=== PATIENT | male | born 1950 | race Caucasian/White ===

== ENCOUNTER 2016-12-28 10:03 | Emergency (ER) | payer OTHER, BC ==
[2016-12-28] MEDS ORDERED: FOLIC ACID 1 MG TAB PO ONE (10:09)
[2016-12-28] MEDS ORDERED: THIAMINE HCL 100 MG TAB PO ONE (10:09)
[2016-12-28 10:10] VITALS: RESP 18
[2016-12-28] MEDS ORDERED: LORazepam 2 MG/ML INJ ONE (10:11)
[2016-12-28] MEDS ORDERED: CHLORDIAZEPOXIDE 25MG PREPK#6 BTL TAKEHOME ONE (10:13)
--- NOTE | 2016-12-28 10:13 | EDPHY ---
H & P - Personal History Tetanus Vaccine Date: < 10 years - Medical/Surgical History Hx Asthma: No Hx Chronic Respiratory Disease: No Hx Diabetes: No Hx Cardiac Disease: No Hx Renal Disease: No Hx Cirrhosis: No Hx Alcoholism: Yes Hx HIV/AIDS: No Hx Splenectomy or Spleen Trauma: No Other PMH: ANEMIA, HIATAL HERNIA,SPINAL STENOSIS, DROP FOOT in past, ETOH, THROMBOCYTOPENIA, GERD/PANCREATITIS - Social History Smoking Status: Former smoker Time Seen by Provider: 12/28/16 10:03 HPI/ROS: CHIEF COMPLAINT: " I'm withdrawing" HISTORY OF PRESENT ILLNESS: 66-year-old self-described alcoholic called the ambulance because he ran out of alcohol. States he drinks a case of beer per day, last drank yesterday however because liquor stores are closed today and he was unable to get to the liquor store in time he ran out of alcohol has been experiencing withdrawal symptoms. He has been taking sips of Listerine. He is complaining of nausea, tremor. Denies visual or auditory hallucinations. Denies seizure. Denies abdominal pain. Denies back or flank pain. Denies melena or hematochezia or hematemesis. REVIEW OF SYSTEMS: A ten point review of systems was performed and is negative with the exception of the items mentioned in the HPI PAST MEDICAL & SURGICAL HISTORY: Alcoholism SOCIAL HISTORY:last drink of alcohol approximately midnight PHYSICAL EXAM (Prior to examination, patient consented to physical exam, hands were washed and my usual and customary physical exam procedures followed) 1) GENERAL: Well-developed, well-nourished, alert and oriented. Appears anxious , answering questions appropriate.tremulous 2) HEAD: Normocephalic, atraumatic 3) HEENT: Pupils equal, round, reactive to light bilaterally. Sclera anicteric. 4) NECK: Full range of motion, no meningeal signs. 5) LUNGS: Clear auscultation bilaterally 6) HEART: Regular rate and rhythm, no murmur, no heave, no gallop. 7) ABDOMEN: Obese, no focal tenderness, 8) MUSCULOSKELETAL: Moving all extremities, no focal areas of tenderness, no obvious trauma. No peripheral edema or discoloration. 9) BACK: no visual or palpable abnormality. 10) SKIN: No rash, no petechiae. 11) Psychiatric: Patient is oriented X 3, there is no agitation. Tremulous. DIFFERENTIAL DIAGNOSIS: in no particular order including but not limited to alcohol withdrawal, alcohol withdrawal seizure, delirium tremens (Flo Crawley) Constitutional: Initial Vital Signs Temperature (C) 37.3 C 12/28/16 10:08 Heart Rate 105 H 12/28/16 10:08 Respiratory Rate 18 12/28/16 10:08 Blood Pressure 172/107 H 12/28/16 10:08 O2 Sat (%) 91 L 12/28/16 10:08 O2 Delivery Mode Room Air Allergies/Adverse Reactions: No Known Allergies Allergy (Verified 02/11/16 23:46) Home Medications: Medication Instructions Recorded Pantoprazole Sodium [Protonix 40mg 40 mg PO DAILY #30 tab 03/03/15 (*)] traZODone [traZODONE 50MG (*)] 50 mg PO HS #0 tab 03/03/15 Ferrous Sulfate [Ferrous Sulf 325 325 mg PO DAILY@1200 10/12/15 MG (*)] Herbals/Supplements -Info Only 1 ea PO DAILY 10/12/15 Gemfibrozil [Lopid 600 MG (*)] 600 mg PO BIDAC 01/20/16 Venlafaxine HCl 75 mg PO BID 02/12/16 Calcium Carbonate [Tums 500MG (*)] 500 mg PO TID PRN #0 tab.chew 02/23/16 Gabapentin [Neurontin 100 MG (*)] 100 mg PO TID 06/13/16 Levothyroxine [Synthroid 50 mcg 50 mcg PO DAILY06 06/13/16 (*)] Medical Decision Making ED Course/Re-evaluation: The patient was evaluated and managed by the physician's therapy assistant. My cosignature indicates that I reviewed the chart and I agree with the findings and plan of care as documented. I am the secondary supervising physician. ( Cassie Villalobos) Patient was observed for a period of time with serial examinations in the emergency department. He received Ativan 2 mg IV. At Most recent exam at 10: 42 a.m. which time he is sleeping. Doubt delirium tremens. [facility]. He denies suicidal Or homicidal ideation on re-evaluation. (Flo Crawley) - Data Points Medications Given: Discontinued Medications Chlordiazepoxide (Librium 25 Mg Prepack#6) 1 btl TAKEHOME EDNOW ONE Stop: 12/28/16 10:14 Last Admin: 12/28/16 10:18 Dose: 1 btl Folic Acid (Folic Acid) 1 mg PO EDNOW ONE Stop: 12/28/16 10:10 Last Admin: 12/28/16 10:16 Dose: 1 mg Lorazepam (Ativan Injection) 2 mg IVP EDNOW ONE Stop: 12/28/16 10:18 Last Admin: 12/28/16 10:18 Dose: 2 mg Thiamine HCl (Vitamin B-1) 100 mg PO EDNOW ONE Stop: 12/28/16 10:10 Last Admin: 12/28/16 10:16 Dose: 100 mg Departure - Departure Disposition: Home, Routine, Self-Care Clinical Impression: Alcohol withdrawal Qualifiers: Complication of substance-induced condition: uncomplicated Qualified Code(s): F10.230 - Alcohol dependence with withdrawal, uncomplicated Condition: Good Instructions: Chlordiazepoxide (By mouth), Alcohol Withdrawal (ED) Additional Instructions: Please consider long-term sobriety. Call 911 if you develop seizure, hallucinations or any other symptoms that concern you Referrals: [facility] [Outside] - 1 day without fail
[2016-12-28] MEDS ORDERED: LORazepam 2 MG/ML INJ IVP ONE (10:17)
[2016-12-28 10:55] VITALS: BP 127/92; PULSE 104; TEMP 98.8; O2SAT 94
== END 2016-12-28 11:03 | disposition home or self-care (01) ==
LOC: EDUNIT#
DX: F10.230 Alcohol dependence with withdrawal, uncomplicated (principal); Z87.891 Personal history of nicotine dependence
CPT/HCPCS: 96374; 99284; J2060

== ENCOUNTER 2017-03-17 11:47 | Emergency (ER) | payer OTHER, BC ==
[2017-03-17 12:00] VITALS: RESP 16
[2017-03-17] MEDS ORDERED: NS 1,000 ML IV ONE (12:05)
--- NOTE | 2017-03-17 12:07 | CPEKG ---
Heart Rate: 77 RR Interval: 779 P-R Interval: 156 QRSD Interval: 104 QT Interval: 444 QTC Interval: 503 P Roberts: 33 QRS Roberts: 57 T Wave Roberts: 46 EKG Severity - ABNORMAL ECG - EKG Impression: SINUS RHYTHM EKG Impression: PROLONGED QT INTERVAL Electronically Signed By: Tu Garcia 17-Mar-2017 13:57:48
[2017-03-17 12:10] LABS: % IMMATURE GRANULYOCYTES 0.5 % (0.0-1.1); ABSOLUTE IMMATURE GRANULOCYTES 0.05 10^3/uL (0.00-0.10); ADD DIFF? NO; ADD MORPH? NO; ADD SCAN? NO; ATYPICAL LYMPHOCYTE FLAG 10 (0-99); FRAGMENT RBC FLAG 0 (0-99); HEMATOCRIT 38.3 % (40.0-51.0); HEMOGLOBIN 13.1 g/dL (13.7-17.5); LEFT SHIFT FLG 0 (0-99); LIPEMIA HEMOLYSIS FLAG 90 (0-99); MEAN CELL HEMOGLOBIN 30.5 pg (27.9-34.1); MEAN CELL HEMOGLOBIN CONCENTR. 34.2 g/dL (32.4-36.7); MEAN CELL VOLUME 89.1 fL (81.5-99.8); MEAN PLATELET VOLUME 9.1 fL (8.7-11.7); PLATELET CLUMPS FLAG 0 (0-99); PLATELET COUNT 204 10^3/uL (150-400); RED CELL DISTRIBUTION WIDTH 14.6 % (11.5-15.2)
[2017-03-17 12:29] LABS: ANION GAP 15 mEq/L (8-16); CALCIUM 9.4 mg/dL (8.5-10.4); CARBON DIOXIDE 26 mEq/l (22-31); CHLORIDE 102 mEq/L (97-110); GLOMERULAR FILTRATION RATE > 60; GLUCOSE 64 mg/dL (70-100); POTASSIUM 3.6 mEq/L (3.5-5.2); SODIUM 143 mEq/L (134-144)
[2017-03-17 13:17] LABS: CK-MB INTERPRETATION NEGATIVE (NEGATIVE)
[2017-03-17 13:19] LABS: CREATINE KINASE-MB FRACTION 8.35 ng/mL (0-3.19)
--- NOTE | 2017-03-17 14:31 | EDPHY ---
H & P Time Seen by Provider: 03/17/17 11:49 HPI/ROS: CHIEF COMPLAINT: Tired HISTORY OF PRESENT ILLNESS: Patient was up for the last 3 days and he took probably 33 Adderall tablets. He has a bottle for 60 prescribed for his ADD dated 03/13/2017 of which only 26 and half are left. Patient says he came in today because he just feeling really tired. 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 He said his right leg felt really cold earlier but now it is fine REVIEW OF SYSTEMS: Eye: no change in vision ENT: no sore throat Cardiac: no chest pain or syncope. Not dizzy or lightheaded Pulmonary: no cough or SOB Abdomen: no vomiting, diarrhea, abdominal pain Musculoskeletal: Previous left toe amputation Skin: no rash Neuro: no headache Constitutional: no fever : no urinary symptoms A comprehensive 10 point review of systems is otherwise negative aside from elements mentioned in the history of present illness. PAST MEDICAL HISTORY: Left 2nd and 3rd toe amputation after infection in [place] Social history: Former smoker, denies other drugs or alcohol. General Appearance: Alert and conversant, cooperative. Eyes: No scleral icterus. ENT, Mouth: Normal mucous membranes. Respiratory: Normal respiratory effort, breath sounds equal, lungs are clear to auscultation. Cardiovascular: Regular rate and rhythm. Dorsalis pedis pulse in both feet. Warm and well perfused. Normal motor and sensory in both feet. Not tachycardic. Gastrointestinal: Abdomen is soft and non tender. Neurological: Alert and oriented x3. Normally conversant. Face symmetric, normal movement and sensation in all extremities. Skin: Warm and dry, no rashes. No localized erythema or lymphangitis, no warmth to palpation, no blisters or eschar. Both legs examined and both feet. Musculoskeletal: Left 2nd and 3rd toe previous amputation, well healed. Compartments are soft in both legs, normal range of motion of both ankles and knees. No calf tenderness. Psychiatric: Not agitated. Denies SI or overdose. Not hallucinating. No evidence of psychosis. Speech is linear and fluent. Emergency Department course/MDM: Patient is not tachycardic. CPK is only slightly elevated at 500. I think his symptoms are explainable by the fact that he has been taking a lot of Adderall and has been awake for the last 3 days. 1435: Patient is alert, currently asymptomatic. Does not have evidence of vascular compromise or infection in his right leg. Smoking Status: Former smoker Constitutional: Initial Vital Signs Temperature (C) 36.8 C 03/17/17 11:57 Heart Rate 82 03/17/17 11:57 Respiratory Rate 16 03/17/17 11:57 Blood Pressure 124/78 H 03/17/17 11:57 O2 Sat (%) 100 03/17/17 11:57 O2 Delivery Mode Room Air Allergies/Adverse Reactions: No Known Allergies Allergy (Verified 02/11/16 23:46) Home Medications: Medication Instructions Recorded Pantoprazole Sodium [Protonix 40mg 40 mg PO DAILY #30 tab 03/03/15 (*)] traZODone [traZODONE 50MG (*)] 50 mg PO HS #0 tab 03/03/15 Ferrous Sulfate [Ferrous Sulf 325 325 mg PO DAILY@1200 10/12/15 MG (*)] Herbals/Supplements -Info Only 1 ea PO DAILY 10/12/15 Gemfibrozil [Lopid 600 MG (*)] 600 mg PO BIDAC 01/20/16 Venlafaxine HCl 75 mg PO BID 02/12/16 Calcium Carbonate [Tums 500MG (*)] 500 mg PO TID PRN #0 tab.chew 02/23/16 Gabapentin [Neurontin 100 MG (*)] 100 mg PO TID 06/13/16 Levothyroxine [Synthroid 50 mcg 50 mcg PO DAILY06 06/13/16 (*)] Medical Decision Making - Diagnostics EKG Interpretation: 12-lead EKG interpreted by me; official reading is in trace master. My interpretation is sinus rhythm rate 77 with QT 444. Differential Diagnosis: Differential considered including but not limited to sodium abnormality, glucose abnormality, fatigue from unintentional lateral overdose, primary psychiatric, anemia. - Data Points Laboratory Results: Laboratory Results 03/17/17 12:00 03/17/17 12:00 03/17/17 03/17/17 12:00 12:00 WBC 9.46 10^3/uL 10^3/uL (3.80-9.50) RBC 4.30 10^6/uL L 10^6/uL (4.40-6.38) Hgb 13.1 g/dL L g/dL (13.7-17.5) Hct 38.3 % L % (40.0-51.0) MCV 89.1 fL fL (81.5-99.8) MCH 30.5 pg pg (27.9-34.1) MCHC 34.2 g/dL g/dL (32.4-36.7) RDW 14.6 % % (11.5-15.2) Plt Count 204 10^3/uL 10^3/uL (150-400) MPV 9.1 fL fL (8.7-11.7) Neut % (Auto) 76.6 % H % (39.3-74.2) Lymph % (Auto) 12.1 % L % (15.0-45.0) [place] % (Auto) 9.2 % % (4.5-13.0) Eos % (Auto) 1.0 % % (0.6-7.6) Baso % (Auto) 0.6 % % (0.3-1.7) Nucleat RBC Rel Count 0.0 % % (0.0-0.2) Absolute Neuts (auto) 7.25 10^3/uL H 10^3/uL (1.70-6.50) Absolute Lymphs (auto) 1.14 10^3/uL 10^3/uL (1.00-3.00) Absolute Monos (auto) 0.87 10^3/uL H 10^3/uL (0.30-0.80) Absolute Eos (auto) 0.09 10^3/uL 10^3/uL (0.03-0.40) Absolute Basos (auto) 0.06 10^3/uL 10^3/uL (0.02-0.10) Absolute Nucleated RBC 0.00 10^3/uL 10^3/uL (0-0.01) Immature Gran % 0.5 % % (0.0-1.1) Immature Gran # 0.05 10^3/uL 10^3/uL (0.00-0.10) Sodium 143 mEq/L mEq/L (134-144) Potassium 3.6 mEq/L mEq/L (3.5-5.2) Chloride 102 mEq/L mEq/L (97-110) Carbon Dioxide 26 mEq/l mEq/l (22-31) Anion Gap 15 mEq/L mEq/L (8-16) BUN 25 mg/dL H mg/dL (7-23) Creatinine 1.0 mg/dL mg/dL (0.7-1.3) Estimated GFR > 60 Glucose 64 mg/dL L mg/dL (70-100) Calcium 9.4 mg/dL mg/dL (8.5-10.4) Creatine Kinase 508 IU/L H IU/L (0-224) CK-MB (CK-2) Fraction 8.35 ng/mL H ng/mL (0-3.19) CK-MB (CK-2) % 1.6 % % (0.0-4.0) Creatine Kinase Interp NEGATIVE (NEGATIVE) Medications Given: Discontinued Medications Sodium Chloride (Ns) 1,000 mls @ 0 mls/hr IV ONCE ONE PRN Reason: Wide Open Stop: 03/17/17 12:06 Last Admin: 03/17/17 12:07 Dose: 1,000 mls Departure - Departure Disposition: Home, Routine, Self-Care Clinical Impression: adderall ingestion Condition: Good Instructions: Amphetamine/Dextroamphetamine (By mouth) Additional Instructions: Take your medications only as prescribed. Referrals: Justino Norris MD [Primary Care Provider] - As per Instructions
[2017-03-17 14:59] VITALS: BP 118/74; PULSE 74; TEMP 97.9; O2SAT 94
== END 2017-03-17 14:58 | disposition home or self-care (01) ==
LOC: EDUNIT#
DX: R53.83 Other fatigue (principal); T43.624A Poisoning by amphetamines, undetermined, initial encounter; Z87.891 Personal history of nicotine dependence

== ENCOUNTER 2017-03-20 20:29 | Inpatient (IN) | payer OTHER, BC ==
--- NOTE | 2017-03-20 20:59 | EDPHY ---
H & P Time Seen by Provider: 03/20/17 20:42 HPI/ROS: CHIEF COMPLAINT: Left foot pain, edema HISTORY OF PRESENT ILLNESS: The patient is a 66-year-old male with previous MRI say presents to the emergency department with left foot pain and lower extremity swelling. Patient states that he has previously had MRI say in his foot which required amputation of his 2nd and 3rd toe. Patient states that he had pain and swelling over his left toe and saw a school office manager. The school office manager told him it was a blood blister and treated in the office. He now has increasing pain on his left foot. He also reports swelling and redness of his legs. No fevers or chills. No shortness of breath or chest pain. REVIEW OF SYSTEMS: My complete review of systems is negative except as mentioned in the HPI. Past Medical/Surgical History: Includes MRSA, anemia, hiatal hernia, spinal stenosis, alcohol abuse, thrombocytopenia, GERD, pancreatitis Past surgical history: Toe amputation Social History: Patient denies alcohol use Smoking Status: Former smoker Physical Exam: Vitals noted GENERAL: No acute distress, alert. HEENT: Eyes normal to inspection, normal pharynx, no signs of dehydration. NECK: No thyromegaly, no lymphadenopathy, supple. RESPIRATORY: Clear to auscultation bilaterally, no rales, rhonchi or wheezing. CVS: Regular rate and rhythm, no rubs, murmurs, or gallops. ABDOMEN: Soft, nontender, nondistended, no organomegaly. BACK: Normal to inspection, no CVA tenderness.See SKIN: Normal color, patient has discoloration over his anterior abdomen. There are no petechiae or hives. Warm, dry. No pallor. See lower extremity exam. EXTREMITIES: Mild bilateral pedal edema. Patient has bilateral lower extremity erythema. Left greater than right. There streaking up the left medial proximal leg. Lower extremities feel mildly warm. Patient's left lower extremity has a discoloration at the tip of great toe. The patient states this is secondary from a school office manager shaving off a blood blister. Patient has amputation of the 2nd 3rd toe on the left. NEURO/PSYCH: Alert and oriented x3, slightly pressured speech, normal motor sensory exam. Constitutional: Initial Vital Signs Temperature (C) 36.8 C 03/20/17 20:33 Heart Rate 89 03/20/17 20:33 Respiratory Rate 20 03/20/17 20:33 Blood Pressure 136/86 H 03/20/17 20:33 O2 Sat (%) 95 03/20/17 20:33 O2 Delivery Mode Room Air Allergies/Adverse Reactions: No Known Allergies Allergy (Verified 03/20/17 20:36) Home Medications: Medication Instructions Recorded Pantoprazole Sodium [Protonix 40mg 40 mg PO DAILY #30 tab 03/03/15 (*)] traZODone [traZODONE 50MG (*)] 50 mg PO HS #0 tab 03/03/15 Ferrous Sulfate [Ferrous Sulf 325 325 mg PO DAILY@1200 10/12/15 MG (*)] Herbals/Supplements -Info Only 1 ea PO DAILY 10/12/15 Gemfibrozil [Lopid 600 MG (*)] 600 mg PO BIDAC 01/20/16 Gabapentin [Neurontin 100 MG (*)] 100 mg PO TID 06/13/16 Disulfiram [Antabuse 250 MG (*)] 250 mg PO HS 03/20/17 Levothyroxine [Synthroid 75 mcg 75 mcg PO DAILY@0600 03/20/17 (*)] Venlafaxine Xr [Effexor Xr] 150 mg PO DAILY 03/20/17 Medical Decision Making ED Course/Re-evaluation: In the emergency department discussed possible etiologies with the patient. I answered all his questions. IV was placed. Laboratory studies were obtained. Patient had blood cultures ordered. Lactate was ordered. The patient was given Rocephin 1 g IV and vancomycin 1 g IV for possible MRI say infection/ cellulitis. Patient's chemistry panel was unremarkable. White count was normal. His lactate was normal. I discussed the results with the patient answered all his questions. I discussed the case with the hospitalist, Dr. Nobles, who accepted the patient. Differential Diagnosis: My differential includes but is not limited to cellulitis, MRI say, edema, allergic reaction bacteremia, sepsis - Data Points Laboratory Results: Laboratory Results 03/20/17 21:45 03/20/17 21:45 03/20/17 03/20/17 03/20/17 21:46 21:45 21:45 WBC RBC Hgb Hct MCV MCH MCHC RDW Plt Count MPV Neut % (Auto) Lymph % (Auto) [place] % (Auto) Eos % (Auto) Baso % (Auto) Nucleat RBC Rel Count Absolute Neuts (auto) Absolute Lymphs (auto) Absolute Monos (auto) Absolute Eos (auto) Absolute Basos (auto) Absolute Nucleated RBC Immature Gran % Immature Gran # PT 13.9 SEC SEC (12.0-15.0) INR 1.08 (0.83-1.16) APTT 36.1 SEC SEC (23.0-38.0) VBG Lactic Acid 0.8 mmol/L mmol/L (0.7-2.1) Sodium 140 mEq/L mEq/L (134-144) Potassium 3.4 mEq/L L mEq/L (3.5-5.2) Chloride 104 mEq/L mEq/L (97-110) Carbon Dioxide 25 mEq/l mEq/l (22-31) Anion Gap 11 mEq/L mEq/L (8-16) BUN 13 mg/dL mg/dL (7-23) Creatinine 0.7 mg/dL mg/dL (0.7-1.3) Estimated GFR > 60 Glucose 73 mg/dL mg/dL (70-100) Calcium 9.1 mg/dL mg/dL (8.5-10.4) Total Bilirubin 0.6 mg/dL mg/dL (0.1-1.4) 03/20/17 21:45 WBC 8.49 10^3/uL 10^3/uL (3.80-9.50) RBC 4.05 10^6/uL L 10^6/uL (4.40-6.38) Hgb 12.3 g/dL L g/dL (13.7-17.5) Hct 35.4 % L % (40.0-51.0) MCV 87.4 fL fL (81.5-99.8) MCH 30.4 pg pg (27.9-34.1) MCHC 34.7 g/dL g/dL (32.4-36.7) RDW 14.1 % % (11.5-15.2) Plt Count 230 10^3/uL 10^3/uL (150-400) MPV 8.9 fL fL (8.7-11.7) Neut % (Auto) 68.7 % % (39.3-74.2) Lymph % (Auto) 16.7 % % (15.0-45.0) [place] % (Auto) 11.4 % % (4.5-13.0) Eos % (Auto) 1.8 % % (0.6-7.6) Baso % (Auto) 0.8 % % (0.3-1.7) Nucleat RBC Rel Count 0.0 % % (0.0-0.2) Absolute Neuts (auto) 5.83 10^3/uL 10^3/uL (1.70-6.50) Absolute Lymphs (auto) 1.42 10^3/uL 10^3/uL (1.00-3.00) Absolute Monos (auto) 0.97 10^3/uL H 10^3/uL (0.30-0.80) Absolute Eos (auto) 0.15 10^3/uL 10^3/uL (0.03-0.40) Absolute Basos (auto) 0.07 10^3/uL 10^3/uL (0.02-0.10) Absolute Nucleated RBC 0.00 10^3/uL 10^3/uL (0-0.01) Immature Gran % 0.6 % % (0.0-1.1) Immature Gran # 0.05 10^3/uL 10^3/uL (0.00-0.10) PT INR APTT VBG Lactic Acid Sodium Potassium Chloride Carbon Dioxide Anion Gap BUN Creatinine Estimated GFR Glucose Calcium Total Bilirubin Medications Given: Discontinued Medications Ceftriaxone Sodium/Dextrose (Rocephin 1 Gm (Premix)) 50 mls @ 100 mls/hr IV EDNOW ONE PRN Reason: Protocol Stop: 03/20/17 22:06 Last Admin: 03/20/17 22:01 Dose: 50 mls Departure - Departure Disposition: [facility] Inpatient Acute Clinical Impression: Cellulitis Qualifiers: Site of cellulitis: extremity Site of cellulitis of extremity: lower extremity Laterality: unspecified laterality Qualified Code(s): L03.119 - Cellulitis of unspecified part of limb Condition: Good Referrals: Justino Norris MD [Primary Care Provider] - As per Instructions
[2017-03-20] MEDS ORDERED: VANCOMYCIN HCL/NORMAL SALINE 250 ML IV ONE (21:37)
[2017-03-20 21:58] LABS: % IMMATURE GRANULYOCYTES 0.6 % (0.0-1.1); ABSOLUTE IMMATURE GRANULOCYTES 0.05 10^3/uL (0.00-0.10); ADD DIFF? NO; ADD MORPH? NO; ADD SCAN? NO; ATYPICAL LYMPHOCYTE FLAG 10 (0-99); FRAGMENT RBC FLAG 0 (0-99); HEMATOCRIT 35.4 % (40.0-51.0); HEMOGLOBIN 12.3 g/dL (13.7-17.5); LEFT SHIFT FLG 0 (0-99); LIPEMIA HEMOLYSIS FLAG 90 (0-99); MEAN CELL HEMOGLOBIN 30.4 pg (27.9-34.1); MEAN CELL HEMOGLOBIN CONCENTR. 34.7 g/dL (32.4-36.7); MEAN CELL VOLUME 87.4 fL (81.5-99.8); MEAN PLATELET VOLUME 8.9 fL (8.7-11.7); PLATELET CLUMPS FLAG 0 (0-99); PLATELET COUNT 230 10^3/uL (150-400); RED BLOOD CELL COUNT 4.05 10^6/uL (4.40-6.38); RED CELL DISTRIBUTION WIDTH 14.1 % (11.5-15.2)
[2017-03-20 22:07] LABS: INR 1.08 (0.83-1.16); PROTIME(PATIENT) 13.9 SEC (12.0-15.0)
[2017-03-20 22:08] LABS: APTT 36.1 SEC (23.0-38.0)
[2017-03-20 22:16] LABS: ANION GAP 11 mEq/L (8-16); BILIRUBIN,TOTAL 0.6 mg/dL (0.1-1.4); CALCIUM 9.1 mg/dL (8.5-10.4); CARBON DIOXIDE 25 mEq/l (22-31); CHLORIDE 104 mEq/L (97-110); CREATININE 0.7 mg/dL (0.7-1.3); GLOMERULAR FILTRATION RATE > 60; GLUCOSE 73 mg/dL (70-100); POTASSIUM 3.4 mEq/L (3.5-5.2); SODIUM 140 mEq/L (134-144)
[2017-03-21] MEDS ORDERED: ACETAMINOPHEN 325 MG TAB PO PRN (00:06)
[2017-03-21] MEDS ORDERED: ONDANSETRON DISINTEGRATING 4 MG TAB PO PRN (00:06)
[2017-03-21] MEDS ORDERED: oxyCODONE IR 5 MG TAB PO PRN (00:06)
[2017-03-21] MEDS ORDERED: ONDANSETRON 4 MG/2 ML VIAL IVP PRN (00:06)
--- NOTE | 2017-03-21 02:56 | PDGENHP ---
History and Physical - Chief Complaint Toe pain - History of Present Illness 66 yo M w/ hx of hypothyroidism and depression presenting with concerns about his L great toe. Patient is a very poor historian and it is quite difficult to ascertain what his exact complaint is. As far as I can tell, he visited a cnc grinder last week who treated a blood blister on his L great toe. Then, today , the patient noticed some increased pain and perhaps a change in appearance. He has erythema on his bilateral lower legs, which he says started after an Adderall overdose a few days ago. He denies fever or chills. The patient himself is not concerned about the erythema. ED wants to admit for cellulitis and IV abx. History Information - Allergies/Home Medication List Allergies/Adverse Reactions: No Known Allergies Allergy (Verified 03/20/17 20:36) Home Medications: Ferrous Sulfate [Ferrous Sulf 325 MG (*)] 325 mg PO DAILY@1200 10/12/15 [Last Taken 03/17/17] Herbals/Supplements -Info Only 1 ea PO DAILY 10/12/15 [Last Taken 03/17/17] Gemfibrozil [Lopid 600 MG (*)] 600 mg PO BIDAC 01/20/16 [Last Taken 03/17/17] Gabapentin [Neurontin 100 MG (*)] 100 mg PO TID 06/13/16 [Last Taken 03/17/17] Dextroamphetamine/Amphetamine [Adderall 30 mg Tablet] 30 mg PO BID@0800,1400 12/01 [Last Taken 03/17/17] Disulfiram [Antabuse 250 MG (*)] 250 mg PO HS 03/20/17 [Last Taken 03/17/17] Levothyroxine [Synthroid 75 mcg (*)] 75 mcg PO DAILY@0600 03/20/17 [Last Taken 03/17/17] Venlafaxine Xr [Effexor Xr] 150 mg PO DAILY 03/20/17 [Last Taken 03/17/17] I have personally reviewed and updated: medical history - Past Medical History Additional medical history: Depression, hypothyroid, anemia - Surgical History Reports: amputation Additional surgical history: L 2nd and 3rd toes - Family History Additional family history: Patient reports family hx of Chron's disease - Social History Smoking Status: Former smoker Alcohol Use: Sober Drug Use: None Review of Systems ROS: 10pt was reviewed & negative except for what was stated in HPI & below Physical Exam Temp Pulse Resp BP Pulse Ox 36.3 C 89 16 140/83 H 95 03/21/17 00:00 03/21/17 00:00 03/21/17 00:00 03/21/17 00:00 03/21/17 00:00 Constitutional: no apparent distress, not in pain Eyes: PERRL, EOMI Ears, Nose, Mouth, Throat: moist mucous membranes, no oral mucosal ulcers Cardiovascular: regular rate and rhythym, no murmur, rub, or gallop Respiratory: no respiratory distress, clear to auscultation Gastrointestinal: normoactive bowel sounds, soft, non-tender abdomen Skin: erythema (b/l shins, L leg with some subtle extension superiorly on medial aspect of leg) Musculoskeletal: other (S/p L 2nd/3rd too amputation; L great toe with onychomycosis, mild area of erythema superiorly, no puss or warmth) Neurologic: AAOx3, CN II-XII Intact Psychiatric: not anxious, other (Odd affect) Lab Data & Imaging Review 03/20/17 21:45 03/20/17 21:45 WBC 8.49 10^3/uL (3.80-9.50) 03/20/17 21:45 RBC 4.05 10^6/uL (4.40-6.38) L 03/20/17 21:45 Hgb 12.3 g/dL (13.7-17.5) L 03/20/17 21:45 Hct 35.4 % (40.0-51.0) L 03/20/17 21:45 MCV 87.4 fL (81.5-99.8) 03/20/17 21:45 MCH 30.4 pg (27.9-34.1) 03/20/17 21:45 MCHC 34.7 g/dL (32.4-36.7) 03/20/17 21:45 RDW 14.1 % (11.5-15.2) 03/20/17 21:45 Plt Count 230 10^3/uL (150-400) 03/20/17 21:45 MPV 8.9 fL (8.7-11.7) 03/20/17 21:45 Neut % (Auto) 68.7 % (39.3-74.2) 03/20/17 21:45 Lymph % (Auto) 16.7 % (15.0-45.0) 03/20/17 21:45 [place] % (Auto) 11.4 % (4.5-13.0) 03/20/17 21:45 Eos % (Auto) 1.8 % (0.6-7.6) 03/20/17 21:45 Baso % (Auto) 0.8 % (0.3-1.7) 03/20/17 21:45 Nucleat RBC Rel Count 0.0 % (0.0-0.2) 03/20/17 21:45 Absolute Neuts (auto) 5.83 10^3/uL (1.70-6.50) 03/20/17 21:45 Absolute Lymphs (auto) 1.42 10^3/uL (1.00-3.00) 03/20/17 21:45 Absolute Monos (auto) 0.97 10^3/uL (0.30-0.80) H 03/20/17 21:45 Absolute Eos (auto) 0.15 10^3/uL (0.03-0.40) 03/20/17 21:45 Absolute Basos (auto) 0.07 10^3/uL (0.02-0.10) 03/20/17 21:45 Absolute Nucleated RBC 0.00 10^3/uL (0-0.01) 03/20/17 21:45 Immature Gran % 0.6 % (0.0-1.1) 03/20/17 21:45 Immature Gran # 0.05 10^3/uL (0.00-0.10) 03/20/17 21:45 PT 13.9 SEC (12.0-15.0) 03/20/17 21:45 INR 1.08 (0.83-1.16) 03/20/17 21:45 APTT 36.1 SEC (23.0-38.0) 03/20/17 21:45 VBG Lactic Acid 0.8 mmol/L (0.7-2.1) 03/20/17 21:46 Sodium 140 mEq/L (134-144) 03/20/17 21:45 Potassium 3.4 mEq/L (3.5-5.2) L 03/20/17 21:45 Chloride 104 mEq/L (97-110) 03/20/17 21:45 Carbon Dioxide 25 mEq/l (22-31) 03/20/17 21:45 Anion Gap 11 mEq/L (8-16) 03/20/17 21:45 BUN 13 mg/dL (7-23) 03/20/17 21:45 Creatinine 0.7 mg/dL (0.7-1.3) 03/20/17 21:45 Estimated GFR > 60 03/20/17 21:45 Glucose 73 mg/dL (70-100) 03/20/17 21:45 Calcium 9.1 mg/dL (8.5-10.4) 03/20/17 21:45 Total Bilirubin 0.6 mg/dL (0.1-1.4) 03/20/17 21:45 Assessment & Plan Assessment: 66 yo M w/ hx of hypothyroid, depression, and anemia presenting w/ possible LLE cellulitis. Plan: 1. Possible cellulitis - Patient is afebrile with WBC of 8 and no infectious symptoms. He does have some erythema on the superior aspect of L great toe, b/l shins, and subtle extensions superiorly on medial aspect of L thigh. Difficult to say if this is cellulitis. I doubt this represents b/l LE cellulitis, if anything extension of erythema up L leg may be slightly concerning. - Marked area of erythema with marker on admission - Blood cultures ordered - Will treat with Vancomycin for now and monitor for retreat of erythema, suspect will be able to transition to PO or stop abx altogether rather quickly - Will not obtain toe imaging at this time noting low suspicion for OM 2. Hypothyroid - Continue LTX 3. Depression - On Venlafaxine as an outpatient. Patient has presented multiple times with Adderall overdoses, unclear if he is still being prescribed this. 4. JOURDAN - On oral Fe as outpatient Diet - Regular Ppx - LMWH Code - Full Dispo - Admit to observation
[2017-03-21 05:26] LABS: % IMMATURE GRANULYOCYTES 0.5 % (0.0-1.1); ABSOLUTE IMMATURE GRANULOCYTES 0.03 10^3/uL (0.00-0.10); ADD DIFF? NO; ADD MORPH? NO; ADD SCAN? NO; ATYPICAL LYMPHOCYTE FLAG 10 (0-99); FRAGMENT RBC FLAG 0 (0-99); HEMATOCRIT 32.4 % (40.0-51.0); HEMOGLOBIN 11.5 g/dL (13.7-17.5); LEFT SHIFT FLG 0 (0-99); LIPEMIA HEMOLYSIS FLAG 90 (0-99); MEAN CELL HEMOGLOBIN 30.8 pg (27.9-34.1); MEAN CELL HEMOGLOBIN CONCENTR. 35.5 g/dL (32.4-36.7); MEAN CELL VOLUME 86.9 fL (81.5-99.8); MEAN PLATELET VOLUME 8.9 fL (8.7-11.7); PLATELET CLUMPS FLAG 0 (0-99); PLATELET COUNT 227 10^3/uL (150-400); RED BLOOD CELL COUNT 3.73 10^6/uL (4.40-6.38); RED CELL DISTRIBUTION WIDTH 14.2 % (11.5-15.2)
[2017-03-21 05:45] LABS: ANION GAP 8 mEq/L (8-16); CALCIUM 8.6 mg/dL (8.5-10.4); CARBON DIOXIDE 21 mEq/l (22-31); CHLORIDE 108 mEq/L (97-110); CREATININE 0.7 mg/dL (0.7-1.3); GLOMERULAR FILTRATION RATE > 60; GLUCOSE 107 mg/dL (70-100); POTASSIUM 3.4 mEq/L (3.5-5.2); SODIUM 137 mEq/L (134-144)
[2017-03-21] MEDS ORDERED: POTASSIUM CL 20 MEQ TAB PO ONE (05:59)
[2017-03-21] MEDS ORDERED: NON-FORMULARY NEW DRUG (Dextroamphetamine/Amphetamine [Adderall 30 Mg Tablet] 30 MG) PO SCH (08:00)
[2017-03-21] MEDS ORDERED: Herbals/Supplements -Info Only PO SCH (09:00)
[2017-03-21] MEDS: VENLAFAXINE XR 150 MG CAP PO SCH (09:15)
[2017-03-21] MEDS: ENOXAPARIN 40 MG/0.4 ML SYR SC SCH (09:15)
[2017-03-21] MEDS: GABAPENTIN 100 MG CAP PO SCH ×3 (09:15→22:40)
[2017-03-21] MEDS: PANTOPRAZOLE SODIUM 40 MG TAB PO SCH (09:15)
[2017-03-21] MEDS: ADDERALL 10 MG TAB PO SCH ×2 (09:38→15:32)
[2017-03-21] MEDS ORDERED: VANCOMYCIN 1.5 GM in D5W 250 ML IV SCH (11:00)
[2017-03-21] MEDS ORDERED: FAMOTIDINE 20 MG/NACL 50 ML IV ONE (12:07)
[2017-03-21] MEDS ORDERED: DIPHENHYDRAMINE CREAM TP PRN (12:07)
[2017-03-21] MEDS: FERROUS SULFATE 325 MG TAB PO SCH (13:10)
--- NOTE | 2017-03-21 13:52 | HOSPPROG ---
Hospitalist Progress Note Assessment/Plan: Patient is a 66 y/o male who presented to the ER with pain to his great Left toe. He saw a medical illustrator last week for evaluation. Had a blister removed. Reviewed his care with Dr Mane Lopez. *Left great toe edema with possible cellulitis blood cx pending was on vanco/will be changed to Cefazolin to get MRI today *recent Adderall overdose is still on this medication and requesting it received a dose today, but is very anxious after *hypothyroidism Synthroid *depression stable/Effexor *alcohol use: chronically on Antabuse *iron deficiency anemia *hypokalemia added electrolyte protocol *dvt prophylaxis: LMWH *Plan: patient will require another midnight stay to evaluate the above Subjective: Jamel is c/o pain at the left big toe area. Objective: Vital Signs Temp Pulse Resp BP Pulse Ox 36.9 C 75 24 H 134/84 H 93 03/21/17 07:24 03/21/17 07:24 03/21/17 07:24 03/21/17 07:24 03/21/17 07:24 Laboratory Results 03/21/17 05:12 03/21/17 05:12 03/20/17 03/21/17 03/22/17 05:59 05:59 05:59 Intake Total 700 972 Balance 700 972 PT 13.9 SEC (12.0-15.0) 03/20/17 21:45 INR 1.08 (0.83-1.16) 03/20/17 21:45 - Physical Exam Constitutional: chronically ill appearing, No not in pain Eyes: PERRL Ears, Nose, Mouth, Throat: hearing normal Cardiovascular: regular rate and rhythym Respiratory: no respiratory distress Gastrointestinal: normoactive bowel sounds Skin: warm, other (left big toe reddened some dried blood at the tip of it/ has some warmth and redness in the ankle area and extends to the huffman area/ no significant swellling) Neurologic: AAOx3 Psychiatric: interacting appropriately, anxious ICD10 Worksheet Patient Problems: Problems Problem Status Onset Cellulitis Acute Adrenal insufficiency Acute Epigastric abdominal pain Acute Nausea & vomiting Acute Sympathomimetic adverse reaction Acute
[2017-03-21] MEDS ORDERED: ADDERALL 10 MG TAB PO SCH (14:00)
--- NOTE | 2017-03-21 14:43 | GCON ---
[f rep st] CONSULTATION INFECTIOUS DISEASE CONSULTATION DATE OF CONSULTATION: 03/21/2017 REFERRING PHYSICIAN: Francis Johnson MD REASON FOR CONSULTATION: Left great toe erythema with wound and possible lower extremity cellulitis . CHIEF COMPLAINT: Red great toe. HISTORY OF PRESENT ILLNESS: This is a 66-year-old male with a past medical history significant for hypothyroidism and depression who came in yesterday after noticing that his left great toe and his l egs were red and that he had some scabbing over his left great toe wound. Apparently, a week ago he went to a shoe repair cobbler, whom the name he cannot recall, when he noticed this black area on his great toe. He was told it was a blood blister and, apparently, it was removed. He had a bandage over it and had not been monitoring it until yesterday when he noticed that there was this black scab over i t and then redness of his great toe. He said that he has had redness of his great toe for the last 4-5 days, although he is a poor historian and cannot give accurate details regarding his left great toe wound or the redness of his foot or legs. He denies any fevers. He said he might have had chil ls. He does have some pain involving his foot just below the great toe area. He states he has sens ation of his feet, particularly left greater than the right. He cannot recall any specific recent t rauma to the left great toe which induced a blood blister. He is not quite sure how he developed it . Patient was placed on vancomycin yesterday, and blood cultures were obtained and are pending, and Infectious Disease is now consulted for further assessment and opinion regarding above. REVIEW OF SYSTEMS: No fevers,intermittent chills. HEAD: No headaches. EYES: No change in vision . ENT: No sore throat, difficulty swallowing, ear pain or ear drainage. CARDIOVASCULAR: Denies a ny chest pain or rapid heartbeat. RESPIRATORY: Denies any shortness of breath or cough. No sputum production. ABDOMEN: No nausea, vomiting, abdominal pain, diarrhea. : No dysuria or hematuria . LOWER EXTREMITIES: He states he has left lower leg, foot swelling. He cannot tell me the durati on of it. MUSCULOSKELETAL: Denies any other joint pains. SKIN: No other change except for the ab ove. Rest of 10-point review of systems essentially negative except for above. PAST MEDICAL HISTORY: Significant for hypothyroidism, depression, and anemia. 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 SOCIAL HISTORY: He is a former smoker. Denies any alcohol. Lives alone. FAMILY HISTORY: Significant for Crohn's. MEDICATIONS: As per MAR. ALLERGIES: No known drug allergies. PHYSICAL EXAMINATION: VITAL SIGNS: Temperature current 36.9, pulse is 75, blood pressure 134/84. Saturations are 93% on room air. Respiratory rate is 24. GENERAL: Patient is sitting on the couch in no acute respiratory distress. Awake, alert, and oriented x3. HEENT: Head is normocephalic, a traumatic. Eyes are reactive bilaterally. No conjunctival injection. No petechiae. Oropharynx is clear. There is no posterior erythema or thrush. CARDIOVASCULAR: S1, S2. Regular rate, rhythm. No murmurs appreciated. RESPIRATORY: Clear to auscultation bilaterally. No rhonchi or rales appr eciated. ABDOMEN: Positive bowel sounds in all 4 quadrants. Soft, nontender, nondistended. No ob vious organomegaly appreciated. EXTREMITIES: Left lower extremity leg and foot swelling. SKIN: M ild erythema involving the left leg. Skin is warm to touch. It appears he might have some mild chr onic venous stasis changes bilaterally, left great toe with erythema which is also warm to touch. N o pain on flexion or extension of the great toe, although there is pain on palpation around the 1st metatarsal head. There is breakdown of the skin at the tip of the great toe. It appears to be supe rficial in nature and some nail changes noted. No known gangrene-like changes. LABORATORY DATA: White blood cell count of 6.4, hemoglobin 11.5, platelets are 227. Neutrophil cou nt is 62%. INR is 1.0. Venous lactic acid 0.8. Sodium 137, potassium 3.4, chloride is 108, bicarb is 21, BUN is 10, creatinine 0.7. Blood cultures x2 sets are pending. I reviewed previous microbi ologic data. It appears that in 2015, he had a toe tissue culture noted with group A strep and MSSA. ASSESSMENT: Left great toe erythema with what appears to be a superficial wound at the tip and poss ible left lower extremity cellulitis versus venous stasis changes. PLAN: At this point in time, will change vancomycin to Ancef given his previous microbiologic data. Await blood cultures for further microbiologic data. Recommend the patient get an MRI of the left foot to further evaluate the great toe as well as the metatarsal region, especially given pain and to evaluate for possible underlying osteomyelitis. Will add CRP to current labs. Recommend elevati ng the leg to help with reducing edema. Would recommend wound care as well to help. Care coordinat ed with the nursing staff. I thank you very much for providing us the opportunity to care for your patient in consultation. /[id number]/MODL
[2017-03-21] MEDS: ceFAZolin 2 GM/DEXTROSE 100 ML IV SCH ×2 (15:09→22:36)
[2017-03-21] MEDS ORDERED: LORazepam 1 MG TAB PO PRN (15:42)
[2017-03-21] MEDS ORDERED: GADOBUTROL 10 ML VIAL IVP ONE (15:57)
[2017-03-21] MEDS: GEMFIBROZIL 600 MG TAB PO SCH (17:31)
[2017-03-21] MEDS: DISULFIRAM 250 MG TAB PO SCH (22:40)
[2017-03-21] MEDS: traZODone 50 MG TAB PO SCH (22:40)
[2017-03-22] MEDS: LEVOTHYROXINE 75 MCG TAB PO SCH (05:48)
[2017-03-22] MEDS: ceFAZolin 2 GM/DEXTROSE 100 ML IV SCH ×3 (05:49→21:55)
[2017-03-22] MEDS: VENLAFAXINE XR 150 MG CAP PO SCH (09:52)
[2017-03-22] MEDS: PANTOPRAZOLE SODIUM 40 MG TAB PO SCH (09:52)
[2017-03-22] MEDS: GABAPENTIN 100 MG CAP PO SCH ×3 (09:52→21:55)
[2017-03-22] MEDS: GEMFIBROZIL 600 MG TAB PO SCH ×2 (09:52→18:05)
[2017-03-22] MEDS: ENOXAPARIN 40 MG/0.4 ML SYR SC SCH (09:52)
--- NOTE | 2017-03-22 10:34 | WOCRNPDOC ---
[facility] Advanced Assessment Note - Skin Integrity Problem, Advanced Assess Left First Toe Dressing Type: Adaptic Touch, Jayna Dressing Description: Intact, Shadowed Exudate Amount: Scant Exudate Color: Reddish/Yellow Exudate Characteristic(s): Sanguinopurulent Integumentary Issue Intervention: Dressing Changed, Silver Gel Applied, Conservative Sharp Bedside Debridement (removal of non-viable callous flap), Mechanical Debridement Erin Wound Tissue: Erythema, Swollen Erin Wound Swelling: Moderate Wound Bed Color: Red, Yellow Wound Bed Constitution: Smooth Tissue (non-granulating), Adhered Slough Site Measurement - Head-to-Toe Length X Width X Depth (cm): Proximal (plantar aspect): 1.4cmx2.2cmx01.cm. Distal (tip of toe): 0.5cmx1.2cmx0.1cm Pulse Location & Description: +2 DP Extremity Temperature: Warm Peripheral Edema Location & Description: +1, pitting, LLE Skin Integrity Problem Comment: Initially this appeared to be one, continuous wound covering the distal aspect of the L great toe. During assessment and cleansing of area, I removed a flap of non-viable, calloused tissue. Underneath , there appear to be two discrete wounds, one at the very tip of the L great toe (distal) and the other on the plantar aspect of the toe (proximal). Distal wound comprised of soft, non-fluctuant tissue smooth tissue, no apparent necrosis. The proximal wound on the plantar aspect is 20% non-granulating, bloody tissue and the remaining wound bed is adhered slough. In between the two wounds is pink new epithelium. There is erythema, warmth, and swelling erin- wound, and this extends up through patient's LLE. Dressing of Hydrofera Blue Ready apply over both wounds, and toe and forefront of foot wrapped w/ Jayna. This patient is under the care of a communicable disease specialist outpatient for ongoing callous removal and foot care. Given his reported history of self-treatment (which includes callous removal w/ scissors) and the previous amputation of both the 2nd and 3rd toes on this extremity, I think it would be prudent for him to have home care for dressing changes and to continue treatment w/ his communicable disease specialist. Wound care will round on patient again on Sunday 03/25. Report given to clinical operations consultant Aaron. Right Second Toe Dressing Type: Band Aid Dressing Description: Intact Exudate Amount: None Exudate Characteristic(s): None Integumentary Issue Intervention: Visualized Under Dressing, Silver Gel Applied Erin Wound Tissue: Intact, Calloused Erin Wound Swelling: None Wound Bed Color: Brown, Red Wound Bed Constitution: Scab Site Odor: None Site Measurement - Head-to-Toe Length X Width X Depth (cm): 0.9mcx3okf0.1cm Skin Integrity Problem Comment: Linear abrasion noted to distal R 2nd toe, presently scabbed w/ no exudate or necrosis noted. Erin-wound tissue is mildy calloused at distal aspect, intact throughout remaining digit. Per patient report, this injury was caused when he attempted to remove a callous w/ scissors. I spoke w/ him at length about how and why this needs to be performed by a communicable disease specialist in the future. He verbalized understanding, and said he will not attempt to do this again given the poor outcome associated w/ his other toes on the L foot. Re-covered site w/ Band-aid after applying small amount of Silvasorb gel. Wound care does not need to follow this particular wound ongoing.
[2017-03-22] MEDS: FERROUS SULFATE 325 MG TAB PO SCH (11:35)
--- NOTE | 2017-03-22 13:16 | HOSPPROG ---
Hospitalist Progress Note Assessment/Plan: Patient is a 66 y/o male who presented to the ER with pain to his great Left toe. He saw a offbearer last week for evaluation. Had a blister removed. *Left great toe edema with possible cellulitis blood cx shows no growth Cefazolin (03/21) MRI shows no osteomyelitis appreciate wound care seeing him/ reviewed her note/ will need home care for drsg changes *recent Adderall overdose is still on this medication and requesting it held it yesterday, resuming now he realizes he overdosed on it/is aware of this and will watch this closely *hypothyroidism Synthroid *depression stable/Effexor *alcohol use: chronically on Antabuse *iron deficiency anemia *hypokalemia added electrolyte protocol *dvt prophylaxis: LMWH *Plan: cont iv abx. He will need home care on discharge/ recommend a nurse arrange a pill box for him. Subjective: Jamel said his foot is better/ upset about not getting Adderal. Objective: Vital Signs Temp Pulse Resp BP Pulse Ox 36.4 C 63 20 125/83 H 93 03/22/17 07:25 03/22/17 07:25 03/22/17 07:25 03/22/17 07:25 03/22/17 07:25 03/21/17 03/22/17 03/23/17 05:59 05:59 05:59 Intake Total 400 Balance 400 PT 13.9 SEC (12.0-15.0) 03/20/17 21:45 INR 1.08 (0.83-1.16) 03/20/17 21:45 - Physical Exam Constitutional: not in pain, chronically ill appearing Eyes: PERRL Ears, Nose, Mouth, Throat: hearing normal Cardiovascular: regular rate and rhythym Respiratory: no respiratory distress Gastrointestinal: normoactive bowel sounds, soft, non-tender abdomen Skin: warm, other (didn't evaluate his left toe/dressing just changed per patient) Neurologic: AAOx3 Psychiatric: interacting appropriately, other (sleepy) ICD10 Worksheet Patient Problems: Problems Problem Status Onset Cellulitis Acute Adrenal insufficiency Acute Epigastric abdominal pain Acute Nausea & vomiting Acute Sympathomimetic adverse reaction Acute
[2017-03-22] MEDS: ADDERALL 10 MG TAB PO SCH (14:59)
--- NOTE | 2017-03-22 15:10 | PCMIDPN ---
Assessment/Plan: Assessment/Plan: 1. LLE cellulitis with wound: - Currently on Ancef therapy. Improving -great toe Wound debrided and now with hydrafera blue. -MRI images reviewed with radiology today. no obvious bony changes to suggest osteomyelitis. -Continue to elevate Legs. -likely transition to oral antibiotics tomorrow -care coordinated with hospitalist team MEds ancef 2g q8- Subjective: afebrile. feels better today. less pain overall involving his legs and foot. denies sob, abd pain or diarrhea. Objective: Vital Signs Temp Pulse Resp BP Pulse Ox 36.4 C 63 20 125/83 H 93 03/22/17 07:25 03/22/17 07:25 03/22/17 07:25 03/22/17 07:25 03/22/17 07:25 03/21/17 03/22/17 03/23/17 05:59 05:59 05:59 Intake Total 400 Balance 400 C-Reactive Protein 84.2 mg/L (<10.0) H 03/21/17 05:12 - Physical Exam General Appearance: alert, no apparent distress Respiratory: lungs clear Cardiac/Chest: regular rate, rhythm Extremities: swelling Abdomen: normal bowel sounds, non-tender, soft, No distended Skin: erythema (LLE: mild erythema on leg. mild erythema over great toe. wound debrided and now with hydrafera blue. ) ICD10 Worksheet Patient Problems: Problems Problem Status Onset Cellulitis Acute Adrenal insufficiency Acute Epigastric abdominal pain Acute Nausea & vomiting Acute Sympathomimetic adverse reaction Acute
[2017-03-22] MEDS: DISULFIRAM 250 MG TAB PO SCH (21:55)
[2017-03-22] MEDS: traZODone 50 MG TAB PO SCH (21:55)
[2017-03-23] MEDS: ceFAZolin 2 GM/DEXTROSE 100 ML IV SCH ×2 (05:35→15:08)
[2017-03-23] MEDS: LEVOTHYROXINE 75 MCG TAB PO SCH (05:35)
[2017-03-23] MEDS: GEMFIBROZIL 600 MG TAB PO SCH ×2 (07:47→16:56)
[2017-03-23] MEDS: ENOXAPARIN 40 MG/0.4 ML SYR SC SCH (08:01)
[2017-03-23] MEDS: ADDERALL 10 MG TAB PO SCH ×2 (08:02→15:08)
[2017-03-23] MEDS: GABAPENTIN 100 MG CAP PO SCH ×2 (08:02→16:56)
[2017-03-23] MEDS: VENLAFAXINE XR 150 MG CAP PO SCH (08:02)
[2017-03-23] MEDS: PANTOPRAZOLE SODIUM 40 MG TAB PO SCH (08:02)
--- NOTE | 2017-03-23 08:39 | HOSPPROG ---
Hospitalist Progress Note Assessment/Plan: #LLE cellulitis/ great toe wound: improved on IV Ancef. CRP down 80-->40. Possible distal phalanx osteo on MRI #Depression: denies SI #Recent Adderall overdose; denies SI #Etoh abuse: Antabuse #Hypokalemia: replete #Hypothyroidism: LT4 #Iron deficiency anemia: cont PO iron #Diet: reg #DVT ppx: Lovenox #Disp: cont IV abx, discuss case with Dr. Lopez in regards to abx duration # Subjective: no pain in foot today. Walking the unit Objective: Vital Signs Temp Pulse Resp BP Pulse Ox 36.6 C 67 16 139/80 H 92 03/23/17 08:00 03/23/17 08:00 03/23/17 08:00 03/23/17 08:00 03/23/17 08:00 03/22/17 03/23/17 03/24/17 05:59 05:59 05:59 Intake Total 400 350 Balance 400 350 PT 13.9 SEC (12.0-15.0) 03/20/17 21:45 INR 1.08 (0.83-1.16) 03/20/17 21:45 - Time Spent With Patient Time Spent with Patient: greater than 35 minutes Time Spent with Patient: Greater than 35 minutes spent on this patients care, greater than 50% of time spent counseling, educating, and coordinating care regarding the above mentioned plan. - Physical Exam Constitutional: no apparent distress, other (walking the halls+) Eyes: PERRL Ears, Nose, Mouth, Throat: moist mucous membranes Cardiovascular: regular rate and rhythym Respiratory: no respiratory distress Gastrointestinal: normoactive bowel sounds Genitourinary: no bladder fullness Skin: warm Musculoskeletal: full muscle strength, other (min erythema over ankle. Great toe healing, min purulence) Neurologic: AAOx3 ICD10 Worksheet Patient Problems: Problems Problem Status Onset Adrenal insufficiency Acute Epigastric abdominal pain Acute Nausea & vomiting Acute Cellulitis Acute Sympathomimetic adverse reaction Acute
--- NOTE | 2017-03-23 10:29 | PCMIDPN ---
Assessment/Plan: Assessment/Plan: 1. LLE cellulitis with wound: - Currently on Ancef therapy. Improving -great toe Wound debrided and now with juliana evans.appreciate wound care. He will need either home health for wound care set up or will need appt at wound care center for wound management as he cannot care for this well on his own. -MRI images reviewed with radiology yesterday. preliminarily with no obvious bony changes to suggest osteomyelitis on preliminary report. Formal report noted with small cortisol erosion noted that cannot exclude osteomyeltis. will recheck CrP. -Continue to elevate Legs. -Change to oral keflex today 500mg q6 for 10 days. -care coordinated with RN, hospitalist team -Will have patient f/u in office in one week. MEds ancef 2g q8- #3 Subjective: afebrile. redness wtih near resolution. less overall swellingg and discomfort. denies sob, abd pain or diarrhea. Objective: Vital Signs Temp Pulse Resp BP Pulse Ox 36.6 C 67 16 139/80 H 92 03/23/17 08:00 03/23/17 08:00 03/23/17 08:00 03/23/17 08:00 03/23/17 08:00 03/22/17 03/23/17 03/24/17 05:59 05:59 05:59 Intake Total 400 350 Balance 400 350 C-Reactive Protein 84.2 mg/L (<10.0) H 03/21/17 05:12 - Physical Exam General Appearance: alert, no apparent distress Respiratory: lungs clear Cardiac/Chest: regular rate, rhythm Extremities: swelling (minimal) Abdomen: normal bowel sounds, non-tender, soft, No distended Skin: other (great toe with very minimal pigmentation changes. no acute erythema noted. near resolution of erythema that was on his left leg. skin is not hot to touch.) ICD10 Worksheet Patient Problems: Problems Problem Status Onset Adrenal insufficiency Acute Cellulitis Acute Epigastric abdominal pain Acute Nausea & vomiting Acute Sympathomimetic adverse reaction Acute
[2017-03-23] MEDS: FERROUS SULFATE 325 MG TAB PO SCH (12:35)
[2017-03-23] MEDS ORDERED: POTASSIUM CL 20 MEQ TAB PO ONE ×2 (14:31→15:30)
[2017-03-23 15:50] VITALS: BP 133/83; PULSE 66; RESP 18; TEMP 98; O2SAT 96
--- NOTE | 2017-03-23 15:54 | GDS ---
[f rep st] DISCHARGE SUMMARY DISCHARGE DIAGNOSES: 1. Left leg cellulitis/great toe wound. 2. Depression. 3. Recent Adderall overdose. 4. Alcohol abuse. 5. Hypokalemia. 6. Hypothyroidism. 7. Iron-deficiency anemia. HISTORY OF PRESENT ILLNESS: The patient is a 66-year-old male with history of depression, hypothyroidism, presenting with pain in his left great toe. He visited a solder leveler printed circuit boards last week who had treated a blood blister. He noted increased pain and redness in that leg. He denies any fevers, chills, or sweats. HOSPITAL COURSE BY PROBLEM: 1. Left great toe wound/leg cellulitis: improved with IV Ancef. MRI showed bony changes of the distal phalanx. I discussed case with Dr. Lopez with ID who recommended Keflex for 10 days. Follow up with her on 03/30/2016. 2. Hypothyroidism: Synthroid. 3. Depression, on Effexor. 4. Recent Adderall overdose: He denies any current IV suicide or homicidal ideations. 5. Iron deficiency anemia. Continue p.o. supplements. 6. Hypokalemia, repleted. 7. Alcohol abuse, on Antabuse. DISPOSITION: Patient is stable for discharge. NEW MEDICATIONS: Keflex. FOLLOWUP: With Dr. Lopez 03/30/2017. /[id number]/MODL MTDD
--- NOTE | 2017-03-23 16:16 | PDIAF ---
- Diagnosis Diagnosis: left leg cellulitis, toe wound Code Status: Full Code - Medication Management Discharge Medications: Medications to Continue on Transfer Pantoprazole Sodium [Protonix 40mg (*)] 40 mg PO DAILY #30 tab 03/03/15 [Last Taken 03/17/17] traZODone [traZODONE 50MG (*)] 50 mg PO HS #0 tab 03/03/15 [Last Taken 03/17/17] Ferrous Sulfate [Ferrous Sulf 325 MG (*)] 325 mg PO DAILY@1200 10/12/15 [Last Taken 03/17/17] Herbals/Supplements -Info Only 1 ea PO DAILY 10/12/15 [Last Taken 03/17/17] Gemfibrozil [Lopid 600 MG (*)] 600 mg PO BIDAC 01/20/16 [Last Taken 03/17/17] Gabapentin [Neurontin 100 MG (*)] 100 mg PO TID 06/13/16 [Last Taken 03/17/17] Dextroamphetamine/Amphetamine [Adderall 30 mg Tablet] 30 mg PO BID@0800,1400 12/01 [Last Taken 03/17/17] Disulfiram [Antabuse 250 MG (*)] 250 mg PO HS 03/20/17 [Last Taken 03/17/17] Levothyroxine [Synthroid 75 mcg (*)] 75 mcg PO DAILY@0600 03/20/17 [Last Taken 03/17/17] Venlafaxine Xr [Effexor Xr] 150 mg PO DAILY 03/20/17 [Last Taken 03/17/17] Cephalexin [Keflex (*)] 500 mg PO Q6H #40 cap 03/23/17 [Last Taken Unknown] Discharge Medications: Refer to the Discharge Home Medication list for PRN reason. - Orders Services needed: Home Care, Registered Nurse Home Care Face to Face: I certify that this patient was under my care and that I had the required [id number] encounter meeting the encounter requirements on the discharge day. My findings support the fact that the patient is homebound as defined in CMS Chapter 7 Medicare Benefits Manual 30.1.1, The condition of the patient is such that there exists a normal inability to leave home and consequently, leaving home would require a considerable and taxing effort. Diet Recommendation: no restrictions on diet - Follow Up Care Current Providers and Referrals: Justino Norris MD [Primary Care Provider] - As per Instructions Lalo Lopez MD [Medical Doctor] - 03/30/17 9:30 am (f/u with Dr. Lopez ( Infectious Diseases) at 9:30am. Check in time is: 9:10am. Thanks. )
== END 2017-03-23 17:47 | disposition home or self-care (01) | DRG 603 ==
LOC: F3E 23:30 → OBSVTOIN 03-21 16:23
PROVIDERS: ADMIT Student in an Organized Health Care Education/Training Program; ATTEND Student in an Organized Health Care Education/Training Program
DX: L03.032 Cellulitis of left toe (principal); E87.6 Hypokalemia; E03.9 Hypothyroidism, unspecified; F32.9 Major depressive disorder, single episode, unspecified; D50.9 Iron deficiency anemia, unspecified; F10.10 Alcohol abuse, uncomplicated; Z87.891 Personal history of nicotine dependence; Z89.422 Acquired absence of other left toe(s); Z86.14 Personal history of Methicillin resistant Staphylococcus aureus infection
CPT/HCPCS: 96365; 97112-GP; 97161-GP; A9585; G8978-GP-CI; G8979-GP-CI; G8980-GP-CI; J0690; J0696; J1650; J3370

== ENCOUNTER 2017-04-16 17:02 | Emergency (ER) | payer OTHER, BC ==
[2017-04-16 17:19] VITALS: RESP 18; O2SAT 96
--- NOTE | 2017-04-16 17:50 | EDPHY ---
H & P Stated Complaint: adderall OD Time Seen by Provider: 04/16/17 17:37 HPI/ROS: CHIEF COMPLAINT: Adderall overdose HISTORY OF PRESENT ILLNESS: The patient is a 66-year-old man with history of ADD who comes to the emergency department because he realized he was taking too much Adderall and he felt nervous. He was nervous about his health. He filled his prescription for Adderall 60 mg times 60 tablets on the . He had been taking them every few hours because he was trying to write a novel about his estranged family members. He denies suicidality. He states that today he realized he had taken too many. He has 20 tablets gone from the bottle. He does not think that he spilled or lost any. He denies taking any drugs alcohol or other substances. He has not overdosed on any of his other medication. He states that he has done this once before. He has no complaints currently. REVIEW OF SYSTEMS: Constitutional: denies: chills, fever, recent illness, recent injury EENTM: denies: blurred vision, double vision, nose congestion Respiratory: denies: cough, shortness of breath Cardiac: denies: chest pain, irregular heart rate, lightheadedness, palpitations Gastrointestinal/Abdominal: denies: abdominal pain, diarrhea, nausea, vomiting, blood streaked stools Genitourinary: denies: dysuria, frequency, hematuria, pain Musculoskeletal: denies: joint pain, muscle pain Skin: denies: lesions, rash, jaundice, bruising Neurological: Anxious, Hematologic/Lymphatic: denies: blood clots, easy bleeding, easy bruising Immunologic/allergic: denies: HIV/AIDS, transplant EXAM: GENERAL: Well-appearing, well-nourished and in no acute distress. HEAD: Atraumatic, normocephalic. EYES: Pupils equal round and reactive to light, extraocular movements intact, sclera anicteric, conjunctiva are normal. ENT: TMs normal, nares patent, oropharynx clear without exudates. Moist mucous membranes. NECK: Normal range of motion, supple without lymphadenopathy or JVD. LUNGS: Breath sounds clear to auscultation bilaterally and equal. No wheezes rales or rhonchi. HEART: Regular rate and rhythm without murmurs, rubs or gallops. ABDOMEN: Soft, nontender, normoactive bowel sounds. No guarding, no rebound. No masses appreciated. BACK: No CVA tenderness, no spinal tenderness, step-offs or deformities EXTREMITIES: Normal range of motion, no pitting or edema. No clubbing or cyanosis. NEUROLOGICAL: Cranial nerves II through XII grossly intact. Normal speech, normal gait. 5/5 strength, normal movement in all extremities, normal sensation PSYCH: Somewhat anxious SKIN: Warm, dry, normal turgor, no visible rashes or lesions. Source: Patient Exam Limitations: No limitations - Personal History Current Tetanus Diphtheria and Acellular Pertussis (TDAP): Yes Tetanus Vaccine Date: < 10 years - Medical/Surgical History Hx Asthma: No Hx Chronic Respiratory Disease: No Hx Diabetes: No Hx Cardiac Disease: No Hx Renal Disease: No Hx Cirrhosis: No Hx Alcoholism: Yes Hx HIV/AIDS: No Hx Splenectomy or Spleen Trauma: No Other PMH: ANEMIA, HIATAL HERNIA,SPINAL STENOSIS, DROP FOOT in past, ETOH, THROMBOCYTOPENIA, GERD/PANCREATITIS, DUODENAL ULCERS - Family History Significant Family History: No pertinent family hx - Social History Smoking Status: Former smoker Alcohol Use: Sober Drug Use: None Constitutional: Initial Vital Signs Temperature (C) 36.5 C 04/16/17 17:02 Heart Rate 93 04/16/17 17:02 Respiratory Rate 18 04/16/17 17:02 Blood Pressure 160/104 H 04/16/17 17:02 O2 Sat (%) 96 04/16/17 17:02 O2 Delivery Mode Room Air Allergies/Adverse Reactions: No Known Allergies Allergy (Verified 03/20/17 20:36) Home Medications: Medication Instructions Recorded Pantoprazole Sodium [Protonix 40mg 40 mg PO DAILY #30 tab 03/03/15 (*)] traZODone [traZODONE 50MG (*)] 50 mg PO HS #0 tab 03/03/15 Ferrous Sulfate [Ferrous Sulf 325 325 mg PO DAILY@1200 10/12/15 MG (*)] Herbals/Supplements -Info Only 1 ea PO DAILY 10/12/15 Gemfibrozil [Lopid 600 MG (*)] 600 mg PO BIDAC 01/20/16 Gabapentin [Neurontin 100 MG (*)] 100 mg PO TID 06/13/16 Dextroamphetamine/Amphetamine 30 mg PO BID@0800,1400 03/20/17 [Adderall 30 mg Tablet] Disulfiram [Antabuse 250 MG (*)] 250 mg PO HS 03/20/17 Levothyroxine [Synthroid 75 mcg 75 mcg PO DAILY@0600 03/20/17 (*)] Venlafaxine Xr [Effexor Xr] 150 mg PO DAILY 03/20/17 Cephalexin [Keflex (*)] 500 mg PO Q6H #40 cap 03/23/17 Medical Decision Making - Diagnostics EKG Interpretation: An EKG obtained and was read and documented in trace view. Please see trace view for full reading and report. Sinus rhythm, very minimally prolonged QT interval ED Course/Re-evaluation: The patient is now asymptomatic. He would like to talk to mental health. He denies suicidality. He states that he would like to be on something other than Adderall for his ADD. He will be medically cleared. 6:40 p.m. the patient has been evaluated by Mental Health. They have provided him resources for follow-up which is what he requested. He continues to denies suicidality or intent at self-harm. His vital signs are stable and he is medically clear. He has no further complaints and is eager to go home. We cautioned him about using his Adderall but will not take away his bottle because we do not have a legal right to do so. He states that he does not want to take them anymore. Differential Diagnosis: Partial list of the Differential diagnosis considered include but were not limited to; polysubstance abuse, Adderall overdose, anxiety, manic and although unlikely based on the history and physical exam, I also considered head injury, infection, acute coronary disease, electrolyte abnormality. I discussed these differential diagnoses and the plan with the patient as well as the usual and expected course. The patient understands that the diagnosis is provisional and that in medicine we are not always correct and that further workup is often warranted. Usual and customary warnings were given. All of the patient's questions were answered. The patient was instructed to return to the emergency department should the symptoms at all worsen or return, otherwise to followup with the physician as we discussed. - Data Points Laboratory Results: Laboratory Results 04/16/17 Unknown 04/16/17 Unknown 04/16/17 04/16/17 04/16/17 Unknown Unknown 18:00 WBC 6.84 10^3/uL 10^3/uL (3.80-9.50) RBC 4.85 10^6/uL 10^6/uL (4.40-6.38) Hgb 14.4 g/dL g/dL (13.7-17.5) Hct 41.8 % % (40.0-51.0) MCV 86.2 fL fL (81.5-99.8) MCH 29.7 pg pg (27.9-34.1) MCHC 34.4 g/dL g/dL (32.4-36.7) RDW 14.1 % % (11.5-15.2) Plt Count 233 10^3/uL 10^3/uL (150-400) MPV 9.4 fL fL (8.7-11.7) Neut % (Auto) 62.2 % % (39.3-74.2) Lymph % (Auto) 27.2 % % (15.0-45.0) [place] % (Auto) 5.8 % % (4.5-13.0) Eos % (Auto) 2.6 % % (0.6-7.6) Baso % (Auto) 1.3 % % (0.3-1.7) Nucleat RBC Rel Count 0.0 % % (0.0-0.2) Absolute Neuts (auto) 4.25 10^3/uL 10^3/uL (1.70-6.50) Absolute Lymphs (auto) 1.86 10^3/uL 10^3/uL (1.00-3.00) Absolute Monos (auto) 0.40 10^3/uL 10^3/uL (0.30-0.80) Absolute Eos (auto) 0.18 10^3/uL 10^3/uL (0.03-0.40) Absolute Basos (auto) 0.09 10^3/uL 10^3/uL (0.02-0.10) Absolute Nucleated RBC 0.00 10^3/uL 10^3/uL (0-0.01) Immature Gran % 0.9 % % (0.0-1.1) Immature Gran # 0.06 10^3/uL 10^3/uL (0.00-0.10) Sodium 140 mEq/L mEq/L (134-144) Potassium 3.7 mEq/L mEq/L (3.5-5.2) Chloride 101 mEq/L mEq/L (97-110) Carbon Dioxide 22 mEq/l mEq/l (22-31) Anion Gap 17 mEq/L H mEq/L (8-16) BUN 16 mg/dL mg/dL (7-23) Creatinine 0.9 mg/dL mg/dL (0.7-1.3) Estimated GFR > 60 Glucose 148 mg/dL H mg/dL (70-100) Calcium 10.3 mg/dL mg/dL (8.5-10.4) Salicylates 3.3 mg/dL mg/dL (2.0-20.0) Urine Opiates Screen NEGATIVE (NEGATIVE) Acetaminophen < 10 mcg/mL L mcg/mL (10-30) Urine Barbiturates NEGATIVE (NEGATIVE) Ur Phencyclidine Scrn NEGATIVE (NEGATIVE) Ur Amphetamine Screen NEGATIVE (NEGATIVE) U Benzodiazepines Scrn NEGATIVE (NEGATIVE) Urine Cocaine Screen NEGATIVE (NEGATIVE) U Marijuana (THC) Screen NON-NEGATIVE H (NEGATIVE) Ethyl Alcohol < 10 mg/dL mg/dL (0-10) Departure - Departure Disposition: Home, Routine, Self-Care Clinical Impression: Overdose Qualifiers: Encounter type: initial encounter Injury intent: accidental or unintentional Qualified Code(s): T50.901A - Poisoning by unspecified drugs, medicaments and biological substances, accidental (unintentional), initial encounter Condition: Fair Instructions: Adult Overdose (ED) Referrals: Patient,NotPresent [Primary Care Provider] - As per Instructions Justino Norris MD [[facility] [place]] - As per Instructions
--- NOTE | 2017-04-16 18:00 | CPEKG ---
Heart Rate: 87 RR Interval: 690 P-R Interval: 156 QRSD Interval: 98 QT Interval: 416 QTC Interval: 501 P [place]: 38 QRS [place]: 60 T Wave [place]: 64 EKG Severity - ABNORMAL ECG - EKG Impression: SINUS TACHYCARDIA EKG Impression: PROLONGED QT INTERVAL Electronically Signed By: Omar Josue 16-Apr-2017 18:03:40
[2017-04-16 18:04] LABS: % IMMATURE GRANULYOCYTES 0.9 % (0.0-1.1); ABSOLUTE IMMATURE GRANULOCYTES 0.06 10^3/uL (0.00-0.10); ADD DIFF? NO; ADD MORPH? NO; ADD SCAN? NO; ATYPICAL LYMPHOCYTE FLAG 0 (0-99); FRAGMENT RBC FLAG 0 (0-99); HEMATOCRIT 41.8 % (40.0-51.0); HEMOGLOBIN 14.4 g/dL (13.7-17.5); LEFT SHIFT FLG 0 (0-99); LIPEMIA HEMOLYSIS FLAG 90 (0-99); MEAN CELL HEMOGLOBIN 29.7 pg (27.9-34.1); MEAN CELL HEMOGLOBIN CONCENTR. 34.4 g/dL (32.4-36.7); MEAN CELL VOLUME 86.2 fL (81.5-99.8); MEAN PLATELET VOLUME 9.4 fL (8.7-11.7); PLATELET CLUMPS FLAG 20 (0-99); PLATELET COUNT 233 10^3/uL (150-400); RED BLOOD CELL COUNT 4.85 10^6/uL (4.40-6.38); RED CELL DISTRIBUTION WIDTH 14.1 % (11.5-15.2)
[2017-04-16 18:09] LABS: ANION GAP 17 mEq/L (8-16); CALCIUM 10.3 mg/dL (8.5-10.4); CARBON DIOXIDE 22 mEq/l (22-31); CHLORIDE 101 mEq/L (97-110); CREATININE 0.9 mg/dL (0.7-1.3); ETHANOL SERUM < 10 mg/dL (0-10); GLOMERULAR FILTRATION RATE > 60; GLUCOSE 148 mg/dL (70-100); POTASSIUM 3.7 mEq/L (3.5-5.2); SALICYLATE 3.3 mg/dL (2.0-20.0); SODIUM 140 mEq/L (134-144)
[2017-04-16 18:41] VITALS: BP 150/90; PULSE 85; TEMP 97.3
== END 2017-04-16 18:49 | disposition home or self-care (01) ==
LOC: EDUNIT#
DX: T43.691A Poisoning by other psychostimulants, accidental (unintentional), initial encounter (principal); Z87.891 Personal history of nicotine dependence
CPT/HCPCS: 80305; G0480

== ENCOUNTER 2017-06-17 13:36 | Emergency (ER) | payer OTHER, BC ==
[2017-06-17 13:43] VITALS: TEMP 97.9
--- NOTE | 2017-06-17 15:04 | EDPHY ---
H & P Time Seen by Provider: 06/17/17 14:07 HPI/ROS: CHIEF COMPLAINT: "Bug bites" HISTORY OF PRESENT ILLNESS: Patient is a 66-year-old male who presents to the emergency department with "bug bites all over. "Patient states he went hiking and went off the trail. Next day noticed bug bites all over. He describes it as highly pruritic. Patient also notes that he had an infection in his left great toe. He has previously had and dictation of his left 2nd and 3rd toes due to infection. He states that this is been present for some time. He denies any fevers or chills. No chest pain or shortness of breath. REVIEW OF SYSTEMS: My complete review of systems is negative except as mentioned in the HPI. Past Medical/Surgical History: Includes anemia, hiatal hernia, spinal stenosis, ETOH, thrombocytopenia, GERD, pancreatitis, duodenal ulcers, toe infection Past surgical history: Includes toe amputation Smoking Status: Former smoker Physical Exam: Vitals noted. 36.6, 112/85, 96, 18, 97% on room air GENERAL: Well-appearing, in no acute distress, alert. HEENT: Eyes normal to inspection, normal pharynx, no signs of dehydration. NECK: No thyromegaly, no lymphadenopathy, supple. RESPIRATORY: Clear to auscultation bilaterally, no rales, rhonchi or wheezing. CVS: Regular rate and rhythm, no rubs, murmurs, or gallops. ABDOMEN: Soft, nontender, nondistended, no organomegaly. BACK: Normal to inspection, no CVA tenderness. SKIN: Normal color, warm, dry. No pallor. Patient has numerous diffuse small scab lesions. There is no significant surrounding erythema. There is no visible sign of abscess. Patient's hands and webbing of hands are spared. The patient has no lesions on his feet. There is no intraoral lesions. No target lesions. No blisters. EXTREMITIES: No pedal edema, no calf tenderness, no Homans sign or cords, no joint swelling. The patient's left great toe has in ulcerative type lesion on the tip. There is no surrounding erythema. No streaking up the foot or leg. Patient's 2nd and 3rd left toe are amputated. The skin surrounding the amputation appears normal. NEURO/PSYCH: Alert and oriented, normal mood and affect, normal motor sensory exam. Constitutional: Initial Vital Signs Temperature (C) 36.6 C 06/17/17 13:40 Heart Rate 96 06/17/17 13:40 Respiratory Rate 18 06/17/17 13:40 Blood Pressure 112/85 H 06/17/17 13:40 O2 Sat (%) 97 06/17/17 13:40 O2 Delivery Mode Room Air Allergies/Adverse Reactions: No Known Allergies Allergy (Verified 03/20/17 20:36) Home Medications: Medication Instructions Recorded Pantoprazole Sodium [Protonix 40mg 40 mg PO DAILY #30 tab 03/03/15 (*)] traZODone [traZODONE 50MG (*)] 50 mg PO HS #0 tab 03/03/15 Ferrous Sulfate [Ferrous Sulf 325 325 mg PO DAILY@1200 10/12/15 MG (*)] Herbals/Supplements -Info Only 1 ea PO DAILY 10/12/15 Gemfibrozil [Lopid 600 MG (*)] 600 mg PO BIDAC 01/20/16 Gabapentin [Neurontin 100 MG (*)] 100 mg PO TID 06/13/16 Dextroamphetamine/Amphetamine 30 mg PO BID@0800,1400 03/20/17 [Adderall 30 mg Tablet] Disulfiram [Antabuse 250 MG (*)] 250 mg PO HS 03/20/17 Levothyroxine [Synthroid 75 mcg 75 mcg PO DAILY@0600 03/20/17 (*)] Venlafaxine Xr [Effexor Xr] 150 mg PO DAILY 03/20/17 Amoxicillin/Clavulanate Pot 875 mg PO BID #20 tab 06/17/17 [Augmentin 875 MG TAB (*)] Permethrin 5% [Elimite 5%] 60 winnie TP ONCE #1 cream 06/17/17 diphenhydrAMINE [Benadryl] 1 - 2 tab PO Q6 #15 tab 06/17/17 Medical Decision Making ED Course/Re-evaluation: In the emergency department I discussed possible etiologies with the patient. I answered all his questions. Patient's lesions appear consistent with etiologies such as bedbugs. I think scabies is less likely. I discussed care of bed bugs with the patient. He will be given a treatment for permethrin. This will cover for possible scabies. He was instructed to take Benadryl for his itching and was given a prescription. I paged Dr. Norris is office. I spoke with Dr. Lockett who was manager administration. He reviewed the patient's record. He recommends starting the patient on Augmentin for his toe findings. I discussed this with the patient. He will have close follow-up with Dr. Norris's office. Dr. Lockett will arrange follow-up. I discussed the plan with the patient. Patient was upset that he was not given his treatment in the emergency department. Patient was given warnings prior to leaving. He will return with worsening symptoms. Differential Diagnosis: My differential includes but is not limited to toe infection osteomyelitis, abscess, bedbugs, scabies, bacteremia, sepsis, SJS Departure - Departure Disposition: Home, Routine, Self-Care Clinical Impression: Rash, Toe infection Bed bug bite Qualifiers: Encounter type: initial encounter Qualified Code(s): W57.XXXA - Bitten or stung by nonvenomous insect and other nonvenomous arthropods, initial encounter Condition: Good Instructions: Bed Bugs (ED) Additional Instructions: Return with increasing pain, fever, worsening rash or any other concerns. Take medication as directed. You have been given a cream to help with bug infestation. You were also given Benadryl for itching. Take your antibiotics as directed and complete the entire course. You need close follow-up with Dr. Norris. Referrals: Justino Norris MD [Primary Care Provider] - 2-3 days, call for appt. Prescriptions: Amoxicillin/Clavulanate Pot [Augmentin 875 MG TAB (*)] 875 mg PO BID #20 tab diphenhydrAMINE [Benadryl] 1 - 2 tab PO Q6 #15 tab Permethrin 5% [Elimite 5%] 60 winnie TP ONCE #1 cream
[2017-06-17 15:24] VITALS: BP 132/103; PULSE 92; RESP 20; O2SAT 96
== END 2017-06-17 15:40 | disposition home or self-care (01) ==
DX: R21 Rash and other nonspecific skin eruption (principal); L08.9 Local infection of the skin and subcutaneous tissue, unspecified; Z87.891 Personal history of nicotine dependence; W57.XXXA Bitten or stung by nonvenomous insect and other nonvenomous arthropods, initial encounter; Y99.8 Other external cause status

== ENCOUNTER → 2017-12-30 | Outpatient (CLI) | payer OTHER, BC | LOC: GIMAGING 14:24 | PROVIDERS: ATTEND Registered Nurse | DX: M54.12 Radiculopathy, cervical region (principal); M50.30 Other cervical disc degeneration, unspecified cervical region; M25.78 Osteophyte, vertebrae; M41.9 Scoliosis, unspecified | CPT/HCPCS: 72040-PO ==

== ENCOUNTER 2018-10-24 01:58 | Emergency (ER) | payer OTHER, BC ==
--- NOTE | 2018-10-24 03:08 | EDPHY ---
H & P Time Seen by Provider: 10/24/18 03:07 HPI/ROS: HPI CHIEF COMPLAINT: Anxiety, racing heart HISTORY OF PRESENT ILLNESS: Patient is a 68-year-old male, states he suffers from depression, history of alcoholism, additionally paranoia, reports to me that he left his private residence tonight to stay at a hotel as he believes that there may be a parasite in his house attacking him. He reports to me that he woke up with an alarm going off in his hotel room it was the temperature monitor on the wall. The alarm would not shut off so he called the dump attendant to see if he gets shot off bowl was unsuccessful this made him very anxious. He began to feel his heart rate, became very concerned and decided come the emergency room. Patient also reports the may of taking 2 doses of his Adderall 30 mg by accident. He has been feeling anxious by this. Denies wanting to hurt himself or anybody else denies SI or HI. Past Medical History: Depression. history of alcoholism. Past Surgical History: No recent surgery Social History: Denies drugs alcohol tobacco. Family History: Noncontributory. ROS REVIEW OF SYSTEMS: 10 Systems were reviewed and negative with the exception of the elements mentioned in the history of present illness. Exam Constitutional anxious, triage nursing summary reviewed, vital signs reviewed, awake/alert. Eyes normal conjunctivae and sclera, EOMI, PERRLA. HENT normal inspection, atraumatic, moist mucus membranes, no epistaxis, neck supple/ no meningismus, no raccoon eyes. Respiratory clear to auscultation bilaterally, normal breath sounds, no respiratory distress, no wheezing. Cardiovascular rate normal, regular rhythm, no murmur, no edema, distal pulses normal. Gastrointestinal soft, non-tender, no rebound, no guarding, normal bowel sounds, no distension, no pulsatile mass. Genitourinary no CVA tenderness. Musculoskeletal no midline vertebral tenderness, full range of motion, no calf swelling, no tenderness of extremities, no meningismus, good pulses, neurovascularly intact. Skin pink, warm, & dry, no rash, skin atraumatic. Neurologic awake, alert and oriented x 3, AAOx3, moves all 4 extremities equally, motor intact, sensory intact, CN II-XII intact, normal cerebellar, normal vision, normal speech. Psychiatric feels anxious. Heme/Lymph/Immune no lymphadenopathy. Differential Diagnosis: Includes but is not limited to in a particular order anxiety attack, panic attack, cardiac arrhythmia, electrolyte disturbance, dehydration Medical Decision Making: Plan for this patient IV establishment IV fluid bolus , IV Ativan for anxiety, basic labs and blood work and re-evaluate. Re-evaluation: EKG interpretation by me on record in [facility] system. Impression time of EKG 4:12 a.m., sinus rhythm rate of 75 without any signs of acute ischemia. No signs of cardiac arrhythmia. 0547: Patient re-evaluated this time he was sleeping and resting comfortably here in the emergency room. Now that he is awake he reports to me feels much better and rested he does not feel any anxiety, denies chest pain or shortness of breath. He states he feels much better after the IV fluids and Ativan. States he "feels back to normal" Troponin 0.00 EKG nonischemic. Chest x-ray: Negative for acute cardiopulmonary disease. 0709: Patient re-evaluated this time resting comfortably has no complaints. He ambulated well throughout the emergency room. Patient denies any chest pain or shortness of breath. He states he feels much better believes he had anxiety attack. He is requesting discharge home. He has been monitored multiple hours in the emergency room without any events he in fact slept here. Plan for discharge home. Return precautions discussed with the patient understands return to the emergency room he has any worsening symptoms includes chest pain, shortness of breath, anxiety, not doing well he is comfortable this plan. Source: Patient, EMS - Personal History Tetanus Vaccine Date: < 10 years - Medical/Surgical History Hx Asthma: No Hx Chronic Respiratory Disease: No Hx Diabetes: No Hx Cardiac Disease: No Hx Renal Disease: No Hx Cirrhosis: No Hx Alcoholism: Yes Hx HIV/AIDS: No Hx Splenectomy or Spleen Trauma: No Other PMH: ANEMIA, HIATAL HERNIA,SPINAL STENOSIS, DROP FOOT in past, ETOH, THROMBOCYTOPENIA, GERD/PANCREATITIS, DUODENAL ULCERS - Social History Smoking Status: Former smoker Constitutional: Initial Vital Signs Temperature (C) 36.8 C 10/24/18 03:20 Heart Rate 94 10/24/18 03:20 Respiratory Rate 20 10/24/18 03:20 Blood Pressure 153/95 H 10/24/18 03:20 O2 Sat (%) 98 10/24/18 03:20 O2 Delivery Mode Room Air Allergies/Adverse Reactions: No Known Allergies Allergy (Verified 10/24/18 03:19) Home Medications: Medication Instructions Recorded Pantoprazole Sodium [Protonix 40mg 40 mg PO DAILY #30 tab 03/03/15 (*)] traZODone [traZODONE 50MG (*)] 50 mg PO HS #0 tab 03/03/15 Ferrous Sulfate [Ferrous Sulf 325 325 mg PO DAILY@1200 10/12/15 MG (*)] Herbals/Supplements -Info Only 1 ea PO DAILY 10/12/15 Gemfibrozil [Lopid 600 MG (*)] 600 mg PO BIDAC 01/20/16 Gabapentin [Neurontin 100 MG (*)] 100 mg PO TID 06/13/16 Dextroamphetamine/Amphetamine 30 mg PO BID@0800,1400 03/20/17 [Adderall 30 mg Tablet] Disulfiram [Antabuse 250 MG (*)] 250 mg PO HS 03/20/17 Levothyroxine [Synthroid 75 mcg 75 mcg PO DAILY@0600 03/20/17 (*)] Venlafaxine Xr [Effexor Xr] 150 mg PO DAILY 03/20/17 Amoxicillin/Clavulanate Pot 875 mg PO BID #20 tab 06/17/17 [Augmentin 875 MG TAB (*)] Permethrin 5% [Elimite 5%] 60 winnie TP ONCE #1 cream 06/17/17 diphenhydrAMINE [Benadryl] 1 - 2 tab PO Q6 #15 tab 06/17/17 Medical Decision Making - Data Points Laboratory Results: Laboratory Results 10/24/18 03:00 10/24/18 03:00 10/24/18 10/24/18 10/24/18 03:50 03:06 03:00 WBC RBC Hgb Hct MCV MCH MCHC RDW Plt Count MPV Neut % (Auto) Lymph % (Auto) [place] % (Auto) Eos % (Auto) Baso % (Auto) Nucleat RBC Rel Count Absolute Neuts (auto) Absolute Lymphs (auto) Absolute Monos (auto) Absolute Eos (auto) Absolute Basos (auto) Absolute Nucleated RBC Immature Gran % Immature Gran # Sodium 136 mEq/L mEq/L (135-145) Potassium 3.5 mEq/L mEq/L (3.5-5.2) Chloride 103 mEq/L mEq/L (97-110) Carbon Dioxide 23 mEq/l mEq/l (22-31) Anion Gap 10 mEq/L mEq/L (6-14) BUN 15 mg/dL mg/dL (7-23) Creatinine 0.8 mg/dL mg/dL (0.7-1.3) Estimated GFR > 60 Glucose 94 mg/dL mg/dL (70-100) Calcium 9.1 mg/dL mg/dL (8.5-10.4) Magnesium 2.0 mg/dL mg/dL (1.6-2.3) POC Troponin I 0.00 ng/mL ng/mL (0.00-0.08) Urine Color YELLOW Urine Appearance HAZY Urine pH 8.0 H (5.0-7.5) Ur Specific [place] 1.002 (1.002-1.030) Urine Protein NEGATIVE (NEGATIVE) Urine Ketones NEGATIVE (NEGATIVE) Urine Blood NEGATIVE (NEGATIVE) Urine Nitrate NEGATIVE (NEGATIVE) Urine Bilirubin NEGATIVE (NEGATIVE) Urine Urobilinogen NEGATIVE EU EU (0.2-1.0) Ur Leukocyte Esterase NEGATIVE (NEGATIVE) Urine Glucose NEGATIVE (NEGATIVE) Salicylates < 1.0 mg/dL L mg/dL (2.0-20.0) Urine Opiates Screen NEGATIVE (NEGATIVE) Acetaminophen < 10 mcg/mL L mcg/mL (10-30) Urine Barbiturates NEGATIVE (NEGATIVE) Ur Phencyclidine Scrn NEGATIVE (NEGATIVE) Ur Amphetamine Screen NON-NEGATIVE H (NEGATIVE) U Benzodiazepines Scrn NEGATIVE (NEGATIVE) Urine Cocaine Screen NEGATIVE (NEGATIVE) U Marijuana (THC) Screen NON-NEGATIVE H (NEGATIVE) Ethyl Alcohol < 10 mg/dL mg/dL (0-10) 10/24/18 03:00 WBC 7.58 10^3/uL 10^3/uL (3.80-9.50) RBC 4.22 10^6/uL L 10^6/uL (4.40-6.38) Hgb 10.2 g/dL L g/dL (13.7-17.5) Hct 31.4 % L % (40.0-51.0) MCV 74.4 fL L fL (81.5-99.8) MCH 24.2 pg L pg (27.9-34.1) MCHC 32.5 g/dL g/dL (32.4-36.7) RDW 17.6 % H % (11.5-15.2) Plt Count 308 10^3/uL 10^3/uL (150-400) MPV 8.6 fL L fL (8.7-11.7) Neut % (Auto) 58.1 % % (39.3-74.2) Lymph % (Auto) 29.9 % % (15.0-45.0) [place] % (Auto) 9.2 % % (4.5-13.0) Eos % (Auto) 1.7 % % (0.6-7.6) Baso % (Auto) 0.8 % % (0.3-1.7) Nucleat RBC Rel Count 0.0 % % (0.0-0.2) Absolute Neuts (auto) 4.40 10^3/uL 10^3/uL (1.70-6.50) Absolute Lymphs (auto) 2.27 10^3/uL 10^3/uL (1.00-3.00) Absolute Monos (auto) 0.70 10^3/uL 10^3/uL (0.30-0.80) Absolute Eos (auto) 0.13 10^3/uL 10^3/uL (0.03-0.40) Absolute Basos (auto) 0.06 10^3/uL 10^3/uL (0.02-0.10) Absolute Nucleated RBC 0.00 10^3/uL 10^3/uL (0-0.01) Immature Gran % 0.3 % % (0.0-1.1) Immature Gran # 0.02 10^3/uL 10^3/uL (0.00-0.10) Sodium Potassium Chloride Carbon Dioxide Anion Gap BUN Creatinine Estimated GFR Glucose Calcium Magnesium POC Troponin I Urine Color Urine Appearance Urine pH Ur Specific [place] Urine Protein Urine Ketones Urine Blood Urine Nitrate Urine Bilirubin Urine Urobilinogen Ur Leukocyte Esterase Urine Glucose Salicylates Urine Opiates Screen Acetaminophen Urine Barbiturates Ur Phencyclidine Scrn Ur Amphetamine Screen U Benzodiazepines Scrn Urine Cocaine Screen U Marijuana (THC) Screen Ethyl Alcohol Medications Given: Discontinued Medications Sodium Chloride (Ns) 1,000 mls @ 0 mls/hr IV EDNOW ONE; Wide Open PRN Reason: Protocol Stop: 10/24/18 03:16 Last Admin: 10/24/18 03:26 Dose: 1,000 mls Lorazepam (Ativan Injection) 0.5 mg IVP EDNOW ONE Stop: 10/24/18 03:17 Last Admin: 10/24/18 03:27 Dose: 0.5 mg Point of Care Test Results: Chemistry 10/24/18 03:06 POC Troponin I 0.00 ng/mL ng/mL (0.00-0.08) Departure - Departure Disposition: Home, Routine, Self-Care Clinical Impression: Anxiety attack Condition: Good Instructions: Anxiety (ED) Additional Instructions: 1. Return to the emergency room if you have worsening symptoms 2. Stay well-hydrated and rest today. Referrals: Patient,NotPresent [Unknown] - As per Instructions [facility],. [Clinic] - As per Instructions
[2018-10-24] MEDS ORDERED: NS 1,000 ML IV ONE (03:15)
[2018-10-24] MEDS ORDERED: LORazepam 2 MG/ML INJ IVP ONE (03:16)
[2018-10-24 03:24] LABS: PLATELET COUNT 308 10^3/uL (150-400)
[2018-10-24 07:35] VITALS: BP 147/89
--- NOTE | 2018-10-28 07:53 | CPEKG ---
Test Reason : OPEN Blood Pressure : / mmHG Vent. Rate : 075 BPM Atrial Rate : 075 BPM P-R Int : 163 ms QRS Dur : 108 ms QT Int : 433 ms P-R-T Axes : 046 061 044 degrees QTc Int : 484 ms Sinus rhythm Borderline prolonged QT interval Confirmed by Giuseppe Yanes ([id number]) on 10/28/2018 7:52:38 AM Referred By: Giuseppe Yanes Confirmed By:Giuseppe Yanes
== END 2018-10-24 07:34 | disposition home or self-care (01) ==
LOC: EDUNIT#
DX: F41.0 Panic disorder [episodic paroxysmal anxiety] (principal); E86.9 Volume depletion, unspecified
CPT/HCPCS: 71045; 93005; J2060; 80305; 84484-ER; 96374; G0480